=== PATIENT | female | born 1980 | race Caucasian/White ===

== ENCOUNTER 2020-12-01 15:34 | Emergency (ER) | payer OTHER ==
[~2020-12-01 15:34] MED LIST: AUGMENTIN 875-1 EACH PO; BACTROBAN OINT22 GM EXT; BENTYL 20MG TAB20 MG PO; COZAAR100 MG PO; CRESTOR40 MG PO; DIFLUCAN150 MG PO; FLEXERIL 10 MG10 MG PO; GABAPENTIN300 MG PO; GLUCOPHAGE1000 MG PO; HUMULIN R U-500 SQ; JARDIANCE25 MG PO; K-DUR TAB 20 M20 MEQ PO; KEFLEX CAP 500500 MG PO; LANTUS SOL100 UNIT/1 SQ; NAPROSYN500 MG PO; NOVOLOG100 UNIT/1 SC; OMEPRAZOLE20 M2 PO; PROTONIX 40 MG40 M1 PO; ROBITUSSIN AC480 ML PO; TORADOL 10 MG T10 MG PO; TRICOR145 MG PO; ZOFRAN ODT 4 MG4 MG PO; ZOFRAN4 MG SL; [UNRECOGNIZED DRUG - CODE] SC
[2020-12-01 16:18] LABS: HEMOGLOBIN 16.3 gm/dl (12.3-15.3); RED BLOOD COUNT 5.66 M/UL (4.00-5.10); WHITE BLOOD COUNT 11.9 K/UL (4.5-11.0)
[2020-12-01 17:21] LABS: BUN/CREATININE RATIO 13 (0-10)
[2020-12-01] MEDS ORDERED: CYCLOBENZAPRINE10 MG PO ×2 (19:57→19:58)
[2020-12-01] MEDS ORDERED: IBUPROFEN800 MG PO (19:58)
== END 2020-12-01 20:12 | disposition home or self-care (01) ==
LOC: ER1 15:34
PROVIDERS: Physician Assistant
DX: S20.211A Contusion of right front wall of thorax, initial encounter (principal); E87.6 Hypokalemia; M51.37 Other intervertebral disc degeneration, lumbosacral region; E11.9 Type 2 diabetes mellitus without complications; F17.200 Nicotine dependence, unspecified, uncomplicated; Z87.19 Personal history of other diseases of the digestive system; Z88.1 Allergy status to other antibiotic agents; V43.52XA Car driver injured in collision with other type car in traffic accident, initial encounter; Y92.410 Unspecified street and highway as the place of occurrence of the external cause
CPT/HCPCS: 36415; 71260; 72128; 72131; 80053; 81001; 84703; 85025; 99284; Q9967

== ENCOUNTER 2021-06-27 10:28 | Emergency (ER) | payer MEDICARE ==
[~2021-06-27 10:28] MED LIST changes: +CYCLOBENZAPRINE10 MG PO; +IBUPROFEN800 MG PO
== END 2021-06-27 13:50 | disposition home or self-care (01) ==
LOC: ER1 10:28
DX: J06.9 Acute upper respiratory infection, unspecified (principal); Z20.822 Contact with and (suspected) exposure to COVID-19; Z90.49 Acquired absence of other specified parts of digestive tract; I10 Essential (primary) hypertension; E11.9 Type 2 diabetes mellitus without complications
CPT/HCPCS: 71045; 99284; U0003

== ENCOUNTER 2021-07-03 18:00 | Inpatient (IN) | payer MEDICARE ==
[~2021-07-03] VITALS: Ht 157.5 cm; Wt 86.2 kg
[~2021-07-03 18:00] MED LIST changes: -GABAPENTIN300 MG PO
[2021-07-03 19:04] LABS: HEMOGLOBIN 13.5 gm/dl (12.3-15.3); RED BLOOD COUNT 4.79 M/UL (4.00-5.10)
[2021-07-03 19:55] LABS: BUN/CREATININE RATIO 17 (0-10)
[2021-07-04 04:48] LABS: HEMOGLOBIN 12.6 gm/dl (12.3-15.3); RED BLOOD COUNT 4.52 M/UL (4.00-5.10); WHITE BLOOD COUNT 2.6 K/UL (4.5-11.0)
[2021-07-04 05:16] LABS: BUN/CREATININE RATIO 21 (0-10)
[2021-07-04] MEDS ORDERED: NOVOLIN 70100 UNIT/1 INJ ×2 (10:43→10:44)
[2021-07-04] MEDS ORDERED: FLONASE ALLER15.8 ML (10:47)
[2021-07-04] MEDS ORDERED: LISINOPRIL40 MG PO (10:47)
[2021-07-04] MEDS ORDERED: GABAPENTIN600 MG PO (21:32)
[2021-07-05 06:48] LABS: RED BLOOD COUNT 4.28 M/UL (4.00-5.10)
[2021-07-05 06:56] LABS: WHITE BLOOD COUNT 3.6 K/UL (4.5-11.0)
[2021-07-05 07:02] LABS: BUN/CREATININE RATIO 37 (0-10)
[2021-07-06 06:51] LABS: HEMOGLOBIN 12.4 gm/dl (12.3-15.3); RED BLOOD COUNT 4.43 M/UL (4.00-5.10)
[2021-07-06 06:52] LABS: WHITE BLOOD COUNT 4.9 K/UL (4.5-11.0)
[2021-07-06 07:01] LABS: BUN/CREATININE RATIO 35 (0-10)
[2021-07-07 07:43] LABS: HEMOGLOBIN 12.4 gm/dl (12.3-15.3); RED BLOOD COUNT 4.39 M/UL (4.00-5.10); WHITE BLOOD COUNT 5.9 K/UL (4.5-11.0)
[2021-07-07 08:31] LABS: BUN/CREATININE RATIO 24 (0-10)
[2021-07-08 07:08] LABS: HEMOGLOBIN 12.8 gm/dl (12.3-15.3); RED BLOOD COUNT 4.55 M/UL (4.00-5.10); WHITE BLOOD COUNT 6.8 K/UL (4.5-11.0)
[2021-07-08 07:50] LABS: BUN/CREATININE RATIO 24 (0-10)
[2021-07-09 07:07] LABS: HEMOGLOBIN 12.4 gm/dl (12.3-15.3); RED BLOOD COUNT 4.36 M/UL (4.00-5.10); WHITE BLOOD COUNT 6.7 K/UL (4.5-11.0)
[2021-07-09 07:27] LABS: BUN/CREATININE RATIO 24 (0-10)
[2021-07-10 06:25] LABS: HEMOGLOBIN 13.4 gm/dl (12.3-15.3); RED BLOOD COUNT 4.66 M/UL (4.00-5.10)
[2021-07-10 06:50] LABS: BUN/CREATININE RATIO 32 (0-10)
[2021-07-11 06:27] LABS: HEMOGLOBIN 13.7 gm/dl (12.3-15.3); RED BLOOD COUNT 4.85 M/UL (4.00-5.10); WHITE BLOOD COUNT 10.1 K/UL (4.5-11.0)
[2021-07-11 06:57] LABS: BUN/CREATININE RATIO 37 (0-10)
[2021-07-11] MEDS ORDERED: AMLODIPINE BESYL5 MG PO (16:35)
[2021-07-11] MEDS ORDERED: DEXAMETHASONE6 MG PO (16:35)
[2021-07-12 07:18] LABS: HEMOGLOBIN 12.6 gm/dl (12.3-15.3); RED BLOOD COUNT 4.4 M/UL (4.00-5.10); WHITE BLOOD COUNT 8.8 K/UL (4.5-11.0)
[2021-07-12 07:31] LABS: BUN/CREATININE RATIO 48 (0-10)
[2021-07-12] MEDS ORDERED: CARVEDILOL25 MG PO (09:31)
== END 2021-07-12 11:24 | disposition home or self-care (01) | DRG 177 ==
LOC: ER1 18:00 → M/S 21:43 → CDU 21:43 → M/S 07-04 17:25
PROVIDERS: Family Medicine; Internal Medicine; ADMIT Internal Medicine
PROC: 8E0ZXY6 Isolation (ICD-10-PCS; principal; 2021-07-03)
PROC: XW033E5 Introduction of Remdesivir Anti-infective into Peripheral Vein, Percutaneous Approach, New Technology Group 5 (ICD-10-PCS; 2021-07-04)
PROC: 3E0333Z Introduction of Anti-inflammatory into Peripheral Vein, Percutaneous Approach (ICD-10-PCS; 2021-07-04)
PROC: 3E02340 Introduction of Influenza Vaccine into Muscle, Percutaneous Approach (ICD-10-PCS; 2021-07-04)
PROC: XW033H5 Introduction of Tocilizumab into Peripheral Vein, Percutaneous Approach, New Technology Group 5 (ICD-10-PCS; 2021-07-04)
PROC: 5A0955A Assistance with Respiratory Ventilation, Greater than 96 Consecutive Hours, High Flow/Velocity Cannula (ICD-10-PCS; 2021-07-05)
DX: U07.1 COVID-19 (principal); J96.01 Acute respiratory failure with hypoxia; J12.82 Pneumonia due to coronavirus disease 2019; K86.1 Other chronic pancreatitis; E78.1 Pure hyperglyceridemia; M79.7 Fibromyalgia; F17.210 Nicotine dependence, cigarettes, uncomplicated; E11.65 Type 2 diabetes mellitus with hyperglycemia; I10 Essential (primary) hypertension; E87.6 Hypokalemia; Z90.49 Acquired absence of other specified parts of digestive tract; Z98.890 Other specified postprocedural states; Z88.8 Allergy status to other drugs, medicaments and biological substances; Z82.49 Family history of ischemic heart disease and other diseases of the circulatory system; Z83.3 Family history of diabetes mellitus; Z23 Encounter for immunization; Z79.899 Other long term (current) drug therapy; Z79.4 Long term (current) use of insulin
CPT/HCPCS: 36415; 36600; 71045; 80048; 80053; 81001; 82533; 82550; 82553; 82803; 82962; 83605; 83615; 83735; 83880; 84132; 84484; 85025; 85027; 85379; 85610; 85652; 86140; 87040; 93005; 94640; 94760; 96374; 96375; 99285; J0456; J1100; J1650; J1956; J2405; J2543; J3480; J7030; Q0249; Q9967

== ENCOUNTER 2021-07-21 08:38 | Inpatient (IN) | payer MEDICARE ==
[~2021-07-21] VITALS: Ht 160 cm; Wt 90.7 kg
[~2021-07-21 08:38] MED LIST changes: +AMLODIPINE BESYL5 MG PO; +CARVEDILOL25 MG PO; +DEXAMETHASONE6 MG PO; +FLONASE ALLER15.8 ML; +GABAPENTIN600 MG PO; +LISINOPRIL40 MG PO; +NOVOLIN 70100 UNIT/1 INJ
[2021-07-21 12:50] LABS: HEMOGLOBIN 14.6 gm/dl (12.3-15.3); RED BLOOD COUNT 4.61 M/UL (4.00-5.10); WHITE BLOOD COUNT 18.2 K/UL (4.5-11.0)
[2021-07-21 13:58] LABS: BUN/CREATININE RATIO 25 (0-10)
[2021-07-22 02:43] LABS: HEMOGLOBIN 12.5 gm/dl (12.3-15.3); RED BLOOD COUNT 4.11 M/UL (4.00-5.10); WHITE BLOOD COUNT 12.4 K/UL (4.5-11.0)
[2021-07-22 03:07] LABS: BUN/CREATININE RATIO 34 (0-10)
[2021-07-22 15:12] LABS: ANTI-CENTROMERE B ANTIBODIES <0.2 AI (0.0-0.9); ANTI-DNA (DS) AB QN <1 IU/mL (0-9); ANTI-JO-1 <0.2 AI (0.0-0.9); ANTICHROMATIN ANTIBODIES <0.2 AI (0.0-0.9); ANTIRIBOSOMAL P ANTIBODIES <0.2 AI (0.0-0.9); ANTISCLERODERMA-70 ANTIBODIES <0.2 AI (0.0-0.9); RNP ANTIBODIES <0.2 AI (0.0-0.9); SJOGREN'S ANTI-SS-A <0.2 AI (0.0-0.9); SJOGREN'S ANTI-SS-B <0.2 AI (0.0-0.9); SMITH ANTIBODIES <0.2 AI (0.0-0.9); SMITH/RNP ANTIBODIES <0.2 AI (0.0-0.9)
[2021-07-23 03:56] LABS: HEMOGLOBIN 11.7 gm/dl (12.3-15.3); RED BLOOD COUNT 3.9 M/UL (4.00-5.10); WHITE BLOOD COUNT 14.5 K/UL (4.5-11.0)
[2021-07-23 04:16] LABS: BUN/CREATININE RATIO 55 (0-10)
[2021-07-24 02:51] LABS: BUN/CREATININE RATIO 51 (0-10)
[2021-07-24 04:10] LABS: HEMOGLOBIN 11.3 gm/dl (12.3-15.3); RED BLOOD COUNT 3.9 M/UL (4.00-5.10)
[2021-07-24 04:11] LABS: WHITE BLOOD COUNT 10.4 K/UL (4.5-11.0)
[2021-07-25 02:39] LABS: HEMOGLOBIN 12.6 gm/dl (12.3-15.3); RED BLOOD COUNT 4.26 M/UL (4.00-5.10)
[2021-07-25 02:53] LABS: BUN/CREATININE RATIO 49 (0-10)
[2021-07-25] MEDS ORDERED: IPRAT-ALBUT 0.5-3 ML NEB (10:15)
[2021-07-25] MEDS ORDERED: DEX4 GLUCOSE4 GM PO (10:15)
[2021-07-25] MEDS ORDERED: PROTONIX 40 MG40 M1 PO (10:15)
[2021-07-25] MEDS ORDERED: HUMALOG100 UNIT/1 SC (10:15)
[2021-07-25] MEDS ORDERED: HYDRALAZINE HCL25 MG PO (10:26)
[2021-07-25 16:13] LABS: ANTIMYELOPEROXIDASE (MPO) ABS <9.0 U/mL (0.0-9.0); ANTIPROTEINASE 3 (PR-3) ABS <3.5 U/mL (0.0-3.5); ATYPICAL PANCA <1:20 titer (Neg:<1:20); CYTOPLASMIC (C-ANCA) <1:20 titer (Neg:<1:20); PERINUCLEAR (P-ANCA) <1:20 titer (Neg:<1:20)
== END 2021-07-25 13:35 | disposition home or self-care (01) | DRG 175 ==
LOC: ER1 08:38 → CDU 13:29 → PROG CARE 13:29
PROVIDERS: Emergency Medicine; Nurse Practitioner; Physician Assistant; ADMIT Internal Medicine
PROC: B24BZZ4 Ultrasonography of Heart with Aorta, Transesophageal (ICD-10-PCS; principal; 2021-07-21)
PROC: 5A0945A Assistance with Respiratory Ventilation, 24-96 Consecutive Hours, High Flow/Velocity Cannula (ICD-10-PCS; 2021-07-21)
DX: I26.99 Other pulmonary embolism without acute cor pulmonale (principal); J96.01 Acute respiratory failure with hypoxia; J15.9 Unspecified bacterial pneumonia; Z20.822 Contact with and (suspected) exposure to COVID-19; R04.2 Hemoptysis; E87.1 Hypo-osmolality and hyponatremia; K86.1 Other chronic pancreatitis; I10 Essential (primary) hypertension; E78.5 Hyperlipidemia, unspecified; K74.60 Unspecified cirrhosis of liver; E11.65 Type 2 diabetes mellitus with hyperglycemia; F17.210 Nicotine dependence, cigarettes, uncomplicated; M79.7 Fibromyalgia; E66.9 Obesity, unspecified; Z82.49 Family history of ischemic heart disease and other diseases of the circulatory system; Z79.01 Long term (current) use of anticoagulants; Z90.49 Acquired absence of other specified parts of digestive tract; Z88.1 Allergy status to other antibiotic agents; Z82.79 Family history of other congenital malformations, deformations and chromosomal abnormalities; Z83.3 Family history of diabetes mellitus; Z87.59 Personal history of other complications of pregnancy, childbirth and the puerperium; Z68.37 Body mass index [BMI] 37.0-37.9, adult
CPT/HCPCS: ECHO; 36415; 36600; 71045; 80048; 80053; 80202; 82550; 82553; 82803; 82962; 83516; 83520; 83874; 83880; 84484; 85025; 85610; 85730; 86140; 86256; 87081; 93005; 93306; 94640; 94760; 96374; 96375; 99285; J0360; J0692; J1170; J1205; J1644; J1940; J2185; J2405; J2920; J2930; J3370; J7070; Q9967; U0002

== ENCOUNTER → 2021-08-08 | Outpatient (CLI) | payer MEDICARE ==
[~2021-08-08] MED LIST changes: +DEX4 GLUCOSE4 GM PO; +HUMALOG100 UNIT/1 SC; +HYDRALAZINE HCL25 MG PO; +IPRAT-ALBUT 0.5-3 ML NEB
== END ==
LOC: EXRD 11:24
DX: R06.02 Shortness of breath (principal)
CPT/HCPCS: 71046